=== PATIENT | male | born 1965 | race Caucasian/White ===

== ENCOUNTER 2018-06-25 04:37 | Emergency (ER) | payer BC, OTHER ==
[2018-06-25] MEDS ORDERED: HYDROmorphone 1 MG/ML Syringe IVPUSH ONE ×2 (04:50→05:20)
[2018-06-25] MEDS ORDERED: HYDROmorphone 1 MG/ML Syringe ONE ×2 (04:50→05:18)
[2018-06-25] MEDS ORDERED: Lidocaine 1% 20 ML MDV ONE (05:07)
--- NOTE | 2018-06-25 05:09 | EDM.PDOC ---
ED HPI GENERAL MEDICAL PROBLEM - General Chief Complaint: Upper Extremity Injury/Pain Stated Complaint: left shoulder dislocation Time Seen by Provider: 06/25/18 04:55 Source of Information: Reports: Patient History Limitations: Reports: No Limitations - History of Present Illness INITIAL COMMENTS - FREE TEXT/NARRATIVE: Patient presents with left shoulder dislocation that occurred about 0400 this morning at work. He tells me that he started to fall forward and grabbed a railing but his gloves were oily and his personal development mentor slipped causing him to fall under the railing with his arm still over it. He is in a lot of pain but can move his fingers okay. He denies any other injury or pain. Pain 01/10 currently. - Related Data Allergies Allergy/AdvReac Type Severity Reaction Status Date / Time No Known Allergies Allergy Verified 06/25/18 04:39 Home Meds: Home Meds . [No Known Home Meds] 12/22/16 [History] Past Medical History - Past Surgical History HEENT Surgical History: Reports: Oral Surgery Review of Systems - Review of Systems Review Of Systems: See Below Constitutional: Denies: Chills, Fever Eyes: Denies: Blurred Vision, Pain, Vision Change Ears: Denies: Dizziness, Pain Nose: Denies: Epistaxis, Pain, Clear Discharge Mouth/Throat: Denies: Hoarse Voice, Difficulty Swallowing Respiratory: Denies: Shortness of Breath, Cough Cardiovascular: Denies: Chest Pain, Lightheadedness, Syncope GI/Abdominal: Denies: Abdominal Pain, Vomiting Genitourinary: Denies: Incontinence Musculoskeletal: Reports: Shoulder Pain. Denies: Neck Pain, Arm Pain, Back Pain , Hand Pain, Leg Pain, Foot Pain Skin: Denies: Cyanosis, Jaundice, Mottled, Pallor, Diaphoresis Neurological: Denies: Confusion, Dizziness, Headache, Seizure, Syncope ED EXAM, GENERAL - Physical Exam Exam: See Below Exam Limited By: No Limitations General Appearance: Alert, WD/WN, Moderate Distress (pain) Eye Exam: Bilateral Eye: EOMI, Normal Inspection, PERRL Ears: Normal External Exam, Hearing Grossly Normal Nose: Normal Inspection, No Blood Throat/Mouth: Normal Inspection, Normal Lips, Normal Voice, No Airway Compromise Head: Atraumatic, Normocephalic Neck: Normal Inspection, Supple, Non-Tender, Full Range of Motion Respiratory/Chest: No Respiratory Distress, Lungs Clear, Normal Breath Sounds Cardiovascular: Regular Rate, Rhythm, No Murmur Back Exam: Normal Inspection, Full Range of Motion Extremities: Limited Range of Motion (left shoulder), Other (Left arm was held close to the body with slight internal rotation. Shoulder appears squared off consistent with dislocation. No other obvious deformity. No pain below shoulder with palpation. Hand personal development mentor is 5/5 with CMS intact. Other extremities have normal ROM and exam.). No: Mottled, Pallor, Redness Neurological: Alert, Oriented, CN II-XII Intact, Normal Cognition, No Motor/ Sensory Deficits Psychiatric: Normal Affect, Normal Mood Skin Exam: Warm, Dry, Intact, Normal Color, No Rash Course - Orders/Labs/Meds Orders: Active Orders 24 hr Category Date Time Status Shoulder Comp Lt [CR] Stat Exams 06/25/18 04:40 Ordered Meds: Medications Discontinued Medications Generic Name Dose Route Start Last Admin Trade Name Freq PRN Reason Stop Dose Admin Hydromorphone HCl Confirm 06/25/18 04:50 Dilaudid Administered 06/25/18 04:51 Dose 1 mg .ROUTE .STK-MED ONE - Re-Assessments/Exams Free Text/Narrative Re-Assessment/Exam: 06/25/18 06:43 Xrays confirm anterior dislocation of left shoulder without evidence of fracture. Patient was given Dilaudid 1 mg IV (twice) along with Lorazepam 1 mg IV and an intra-articular injection of 20 cc of 1% lidocaine (using sterile technique and betadine prep). This provided adequate pain relief to allow reduction of dislocation using the external rotation technique. A definite palpable clunk was noted by patient and myself. Following this patient was much more comfortable and could reach left hand up to the right shoulder. Post- reduction xrays confirm reduction without evidence of any fracture; radiology reports agree. Discussed findings and recommendations with patient and his . The arm was placed in a sling/immobilizer (without torso strap attached) prior to discharge. Distal CMS is intact. Patient remained stable throughout ER course and discharge. 06/25/18 07:01 We monitored patient for 90 minutes after last injection of medication before discharging to home. Departure - Departure Time of Disposition: 06:37 Disposition: Home, Self-Care 01 Condition: Good Clinical Impression: Work related injury Anterior shoulder dislocation Qualifiers: Encounter type: initial encounter Laterality: left Qualified Code(s): S43.015A - Anterior dislocation of left humerus, initial encounter - Discharge Information Instructions: Shoulder Dislocation, [id number] Additional Instructions: 1. Keep arm in sling/immobilizer except for showering for at least two days. 2. Recheck with orthopedic doctor (preferably) or your PCP tomorrow, if possible , but for sure before you return to work without restrictions. 3. You may return to work tomorrow night with shoulder immobilizer on and no use of left arm/hand if you haven't seen your doctor yet. 4. You can use Ibuprofen 400-600 mg and/or Tylenol 500 mg three times a day for pain as needed for pain control. - My Orders Last 24 Hours: My Active Orders 06/25/18 04:40 Shoulder Comp Lt [CR] Stat - Assessment/Plan Last 24 Hours: My Active Orders 06/25/18 04:40 Shoulder Comp Lt [CR] Stat
[2018-06-25] MEDS ORDERED: Lidocaine 1% 20 ML MDV INJECT ONE (05:20)
[2018-06-25] MEDS ORDERED: LORazepam 2 MG/ML SDV ONE (05:22)
[2018-06-25] MEDS ORDERED: LORazepam 2 MG/ML SDV IVPUSH ONE (05:25)
[2018-06-25 06:44] VITALS: BP 130/95
--- NOTE | 2018-06-25 08:37 | CR ---
[id number] RAD/RAD Shoulder Left 2V Min Exam: RAD Shoulder Left 2V Min Indication:PT FELL, HAVING LEFT SHOULDER PAIN Comparison: No prior imaging for comparison. Discussion: Anterior dislocation of the humeral head in relation to glenoid. Acromioclavicular joint is intact. Bone mineralization is normal. Impression: Anterior glenohumeral dislocation. Kam Veloz MD 06/25/18 0836 Thank you for allowing us to participate in the care of your patient.
--- NOTE | 2018-06-25 08:44 | CR ---
[id number] RAD/RAD Shoulder Left 2V Min Exam: RAD Shoulder Left 2V Min Indication:POST REDUCTION Comparison: June 25, 2018. Discussion: Hill-Sachs impaction fracture of the humeral head. Glenoid and humeral head are normal alignment following reduction. Impression: Normal alignment status post reduction. Kam Veloz MD 06/25/18 0843 Thank you for allowing us to participate in the care of your patient.
== END 2018-06-25 07:00 | disposition home or self-care (01) ==
LOC: KA.ED 04:37
DX: S43.015A Anterior dislocation of left humerus, initial encounter (principal); W01.0XXA Fall on same level from slipping, tripping and stumbling without subsequent striking against object, initial encounter; Y99.0 Civilian activity done for income or pay
CPT/HCPCS: 23650; 73030-LT; 96374; 96375; 99283-25; J1170; J2060

== ENCOUNTER 2021-11-16 21:37 | Emergency (ER) | payer BC ==
[2021-11-16] MEDS ORDERED: Lidocaine 1% 20 ML MDV ONE (21:53)
[2021-11-16 21:54] VITALS: BP 134/95; PULSE 103
[2021-11-16] MEDS ORDERED: Lidocaine 1% 20 ML MDV INJECT ONE (21:57)
[2021-11-16] MEDS ORDERED: Diphtheria,Pertussis(Acell),Tetanus Vaccine 0.5 ML Syringe IM ONE (21:57)
== END 2021-11-16 22:19 | disposition home or self-care (01) ==
LOC: KA.ED 21:37
DX: S91.011A Laceration without foreign body, right ankle, initial encounter (principal); Z23 Encounter for immunization; W26.0XXA Contact with knife, initial encounter
CPT/HCPCS: 12002; 90471; 90715; 99282-25; 99283